=== PATIENT | female | born 1995 | race Caucasian/White ===

== ENCOUNTER 2018-04-25 16:32 | Emergency (ER) | payer OTHER ==
[2018-04-25] MEDS ORDERED: Propofol* 10 MG/ML 20 ML BTL IV PUSH ONE (16:43)
--- NOTE | 2018-04-25 16:47 | ED ---
Upper Extremity Pain - HPI Summary HPI Summary: A 23 y/o female accompanied by a friend presents to the ED c/o right shoulder pain s/p accident. Currently, the patieht is experiencing right shoulder pain reaching 6/10 in severity. As per triage, "Right shoulder injury. Pt fell today while skiing and fell onto right shoulder". According to the patient, she was skiing and accidentally fell on her right shoulder which led to the shoulder dislocation. - History of Current Complaint Chief Complaint: EDShoulderClavicleInj Stated Complaint: RT SHOULDER INJURY Time Seen by Provider: 04/25/18 16:39 Mechanism Of Injury: Fall From A Standing Position - FALL FROM SKIING Onset/Duration: Started Hours Ago, Still Present Timing: Constant Severity Initially: Moderate - 6/10 Severity Currently: Moderate - 6/10 Pain Location: Shoulder - RIGHT Character: Unable to Describe Aggravating Factor(s): Movement Alleviating Factor(s): Nothing Associated Signs & Symptoms: Positive: Negative - Allergies/Home Medications Allergies/Adverse Reactions: Allergies Allergy/AdvReac Type Severity Reaction Status Date / Time No Known Allergies Allergy Verified 04/25/18 16:37 PMH/Surg Hx/FS Hx/Imm Hx Endocrine/Hematology History: Denies: Hx Diabetes Cardiovascular History: Denies: Hx Hypertension - Surgical History Surgery Procedure, Year, and Place: PER PATIENT, NO PRIOR SURGERIES. Infectious Disease History: No Infectious Disease History: Denies: Traveled Outside the [place] in Last 30 Days - Family History Known Family History: Positive: Unknown - PATIENT DOESN'T KNOW BIOLOGICAL PARENTS - Social History Alcohol Use: None Hx Substance Use: No Substance Use Type: Reports: None Review of Systems Negative: Fever Positive: Other - POSITIVEl RIGHT SHOULDER PAIN All Other Systems Reviewed And Are Negative: Yes Physical Exam - Summary Physical Exam Summary: Appearance: Well-appearing, Well-nourished, lying in bed comfortably Skin: Warm, dry, no obvious rash Eyes: sclera anicteric, no conjunctival pallor ENT: mucous membranes moist, pharynx appears normal Neck: Supple, nontender Respiratory: Clear to auscultation, no signs of respiratory distress Cardiovascular: Normal S1, S2. No murmurs. Normal distal pulses in tibial and radial bilaterally. Abdomen: Soft, nontender, normal active bowel sounds present Musculoskeletal: Obvious anterior dislocation of right shoulder. NV intact. Neurological: A&Ox3, awake and alert, mentation is normal, speech is fluent and appropriate Psychiatric: affect is normal, does not appear anxious or depressed Triage Information Reviewed: Yes Vital Signs On Initial Exam: Initial Vitals Temp Pulse Resp BP Pulse Ox 100 F 90 18 123/66 100 04/25/18 16:35 04/25/18 16:35 04/25/18 16:35 04/25/18 16:35 04/25/18 16:35 Vital Signs Reviewed: Yes Procedures - Joint Reduction RIGHT SHOULDER Joint Reduction Site: shoulder (R) Conscious Sedation: Yes - 150 ML OF PROPOFOL Reduction Attempts: 1 - PATIENT MAINTAINED RESPONSES TO VERBAL STIMULI Pre-Procedure NV Exam: Yes Post Joint Reduction Film: joint reduced - TRACTION-COUNTER TRACTION WITH DR. VANNA CR ASSIST. Diagnostics - Vital Signs Vital Signs Temp Pulse Resp BP Pulse Ox 04/25/18 16:35 100 F 90 18 123/66 100 - Laboratory Lab Statement: Any lab studies that have been ordered have been reviewed, and results considered in the medical decision making process. - Radiology SHOULDER XR Radiology Interpretation Completed By: ED Physician Summary of Radiographic Findings: POST-REDUCTION SHOULDER XR IS INTACT. Course/Dx - Course Course Of Treatment: A 23 y/o female accompanied by a friend presents to the ED c/o right shoulder pain s/p accident. Currently, the patieht is experiencing right shoulder pain reaching 6/10 in severity. According to the patient, she was skiing and accidentally fell on her right shoulder which led to the shoulder dislocation. Physical examination findings significant for obvious anterior dislocation of right shoulder. NV intact. A shoulder XR revealed post- reduction is intact. No laboratory scans were done. In the ED course, the patient received Toradol and Propofol. Patient will be discharged with a diagnosis of shoulder dislocation. Patient is to follow up with orthopedics in 2 weeks. Patient is to wear the sling at all times for the next two weeks unless cleared by an orthopedic surgeon. Patient is to contact orthopedics and schedule an appointment. Patient is to return to ED for any new or worsening symptoms. Patient is agreeable with this plan. - Diagnoses Provider Diagnoses: Shoulder dislocation Discharge - Sign-Out/Discharge Documenting (check all that apply): Patient Departure - DISCHARGE - Discharge Plan Condition: Improved Disposition: HOME Patient Education Materials: Shoulder Dislocation (ED) Referrals: Luca Camacho MD [Medical Doctor] - Additional Instructions: Wear the sling all the time for the next 2 weeks unless otherwise cleared by the orthopedic surgeon. Contact their office tomorrow and make an appt, tell them you had a shoulder dislocation reduced in the ED. Tylenol or motrin is good for any residual soreness. RETURN TO ED FOR ANY NEW OR WORSENING SYMPTOMS. - Billing Disposition and Condition Condition: IMPROVED Disposition: Home - Attestation Statements Document Initiated by Zander: Yes Documenting Emilyibe: Alessio Villanueva Provider For Whom Zander is Documenting (Include Credential): Gasper Perkins MD Scribe Attestation: Alessio Lyles, scribed for Gasper Perkins MD on 04/28/18 at 0204. Scribe Documentation Reviewed: Yes Provider Attestation: The documentation as recorded by the Alessio christianson accurately reflects the service I personally performed and the decisions made by me, Gasper Perkins MD Status of Scribe Document: Viewed
[2018-04-25] MEDS ORDERED: Propofol* 500 MG/50 ML BTL ONE (16:53)
[2018-04-25] MEDS ORDERED: Ketorolac INJ* 30 MG/ML 1 ML VIAL IV PUSH ONE (17:12)
== END 2018-04-25 18:44 | disposition home or self-care (01) ==
LOC: ED 16:32
DX: S43.004A Unspecified dislocation of right shoulder joint, initial encounter (principal); M25.511 Pain in right shoulder; W19.XXXA Unspecified fall, initial encounter; Y93.23 Activity, snow (alpine) (downhill) skiing, snowboarding, sledding, tobogganing and snow tubing; Y92.9 Unspecified place or not applicable
CPT/HCPCS: 96374; 96375; 99284; J1885; J2704